=== PATIENT | female | born 1935 | race Caucasian/White ===

== ENCOUNTER 2017-02-24 12:01 | Inpatient (IN) | payer OTHER ==
[2017-02-24] VITALS (8 sets, daily range): BP systolic 139–184; BP diastolic 60–91
[~2017-02-24] VITALS: Ht 162.6 cm; Wt 62.3 kg
--- NOTE | 2017-02-24 12:20 | ED.ADGEN ---
Adult General Chief Complaint Chief Complaint: MECHANICAL FALL HPI HPI Patient is a 82 year old female with witnessed mechanical fall in the kitchen out while at home. Patient reportedly hit her head. She denies headache, neck pain, extremity pain or weakness. Patient does not report any pain complaint. Denies any symptoms prior to fall. EMS was called to assist the patient, initially the patient was alert and oriented times person and place. Currently the patient became more forgetful with regard to the event could not recall her name. Patient was transferred to the ED for evaluation of fall and altered mental status. The patient's baseline mental status is unknown. Patient isn't on daily Plavix but does not take any other anticoagulation or antiplatelet therapy. History is limited by the patient's cognitive impairment. Review of Systems Review of Systems ROS as per HPI. Current Medications Current Medications Current Medications Medications (Trade) Dose Ordered Sig/Marco Start Time Stop Time Status Last Admin Dose Admin Ondansetron HCl (Zofran) 4 mg STK-MED ONCE 02/24/17 14:18 02/24/17 14:19 DC Allergies Allergies Allergies Coded Allergies Type Severity Reaction Last Updated Verified No Known Drug Allergies 02/24/17 No Physical Exam Physical Exam Constitutional: Well developed, well nourished, no acute distress, non-toxic appearance. HENT: Normocephalic, atraumatic, bilateral external ears normal, oropharynx moist, no oral exudates, nose normal. Eyes: PERRLA, EOM. Neck: Normal range of motion, no tenderness. Cardiovascular:Heart rate regular rhythm, no murmur. Lungs & Thorax: Bilateral breath sounds clear to auscultation. Abdomen: Bowel sounds normal, soft, no tenderness. Skin: Warm, dry. Back: No tenderness. Extremities: No tenderness. Neurologic: Alert and oriented X 1, normal motor function, normal sensory function, no focal deficits noted. Psychologic: Affect normal, judgement normal, mood normal. Current Patient Data Vital Signs Vital Signs Date Time Temp Pulse Resp B/P (MAP) Pulse Ox O2 Delivery O2 Flow Rate FiO2 02/24/17 13:46 78 20 173/90 (117) 97 02/24/17 12:01 97.6 97.6 Lab Values Laboratory Tests Test 02/24/17 12:10 White Blood Count 11.0 x10^3/uL (4.0-11.0) Red Blood Count 4.42 x10^6/uL (3.50-5.40) Hemoglobin 13.0 g/dL (12.0-15.5) Hematocrit 39.6 % (36.0-47.0) Mean Corpuscular Volume 90 fL (79-100) Mean Corpuscular Hemoglobin 29 pg (25-35) Mean Corpuscular Hemoglobin Concent 33 g/dL (31-37) Red Cell Distribution Width 12.8 % (11.5-14.5) Platelet Count 344 x10^3/uL (140-400) Neutrophils (%) (Auto) 88 % (31-73) H Lymphocytes (%) (Auto) 6 % (24-48) L Monocytes (%) (Auto) 5 % (0-9) Eosinophils (%) (Auto) 0 % (0-3) Basophils (%) (Auto) 0 % (0-3) Neutrophils # (Auto) 9.7 x10^3uL (1.8-7.7) H Lymphocytes # (Auto) 0.7 x10^3/uL (1.0-4.8) L Monocytes # (Auto) 0.6 x10^3/uL (0.0-1.1) Eosinophils # (Auto) 0.0 x10^3/uL (0.0-0.7) Basophils # (Auto) 0.0 x10^3/uL (0.0-0.2) Platelet Estimate Pending Sodium Level 137 mmol/L (136-145) Potassium Level 4.0 mmol/L (3.5-5.1) Chloride Level 100 mmol/L (98-107) Carbon Dioxide Level 28 mmol/L (21-32) Anion Gap 9 (6-14) Blood Urea Nitrogen 21 mg/dL (7-20) H Creatinine 1.1 mg/dL (0.6-1.0) H Estimated GFR (Cockcroft-Gault) 47.6 BUN/Creatinine Ratio 19 (6-20) Glucose Level 114 mg/dL (70-99) H Calcium Level 9.9 mg/dL (8.5-10.1) Total Bilirubin 0.6 mg/dL (0.2-1.0) Aspartate Amino Transferase (AST) 19 U/L (15-37) Alanine Aminotransferase (ALT) 17 U/L (14-59) Alkaline Phosphatase 74 U/L (46-116) Total Protein 8.4 g/dL (6.4-8.2) H Albumin 4.1 g/dL (3.4-5.0) Albumin/Globulin Ratio 1.0 (1.0-1.7) Laboratory Tests 02/24/17 12:10 Laboratory Tests 02/24/17 12:10 EKG EKG [EKG normal sinus rhythm, rate 66, nonspecific QRSt abnormality anterior leads, QTC 427.] Radiology/Procedures Radiology/Procedures [CT head: Small amount of scattered subarachnoid hemorrhage bilaterally, chronic left basal ganglia/pronator infarct. Atrophy related to small vessel ischemic changes, per radiology report. ] Course & Med Decision Making Course & Med Decision Making Pertinent Labs and Imaging studies reviewed. (See chart for details) [Witnessed mechanical fall, patient with subsequent memory loss, and nausea after arriving in the emergency department. GCS 14. CT head shows possible traumatic subarachnoid hemorrhage. Patient does not have any focal neurologic deficits. CT imaging cervical spine ordered and pending. Dr. Carreon on-call for general surgery agrees to consult. Recommendations for the patient be admitted to the ICU for monitoring and repeat CT imaging in the morning. Dr. TOVAR on-call for the hospitalist service to admit.] Dragon Disclaimer Dragon Disclaimer This electronic medical record was generated, in whole or in part, using a voice recognition dictation system. RAMIRO GONZALEZ DO Feb 24, 2017 12:20
[2017-02-24] MEDS ORDERED: NAPR500T8 PO (12:22)
[2017-02-24] MEDS ORDERED: FAMO20TA5 PO (12:22)
[2017-02-24] MEDS ORDERED: SUCR1TAB PO (12:22)
[2017-02-24] MEDS ORDERED: LISI-334 PO (12:23)
[2017-02-24] MEDS ORDERED: CLOP75TA PO (12:23)
[2017-02-24] MEDS ORDERED: HYDR12.58 PO (12:24)
[2017-02-24] MEDS ORDERED: LORA0.5T PO (12:24)
[2017-02-24] MEDS ORDERED: CLON0.2T PO (12:25)
[2017-02-24] MEDS ORDERED: CALC500T54 PO (12:25)
[2017-02-24] MEDS ORDERED: MULT-658 PO (12:26)
[2017-02-24 12:27] LABS: BASO % 0 % (0-3); EOS % 0 % (0-3); HEMATOCRIT 39.6 % (36.0-47.0); LYMPH # 0.7 x10^3/uL (1.0-4.8); LYMPH % 6 % (24-48); MEAN CORPUSCULAR HEMOGLOBIN 29 pg (25-35); MEAN CORPUSCULAR HGB CONC 33 g/dL (31-37); MEAN CORPUSCULAR VOLUME 90 fL (79-100); MONO % 5 % (0-9); NEUT % 88 % (31-73); PLATELET COUNT 344 x10^3/uL (140-400); RED BLOOD COUNT 4.42 x10^6/uL (3.50-5.40); RED CELL DISTRIBUTION WIDTH 12.8 % (11.5-14.5)
[2017-02-24 12:28] LABS: CALCIUM 9.9 mg/dL (8.5-10.1); CREATININE 1.1 mg/dL (0.6-1.0); GFR 47.6
[2017-02-24 12:34] LABS: ALBUMIN 4.1 g/dL (3.4-5.0); TOTAL BILIRUBIN 0.6 mg/dL (0.2-1.0); TOTAL PROTEIN 8.4 g/dL (6.4-8.2)
--- NOTE | 2017-02-24 13:01 | EKG ---
[facility] [address] [place] [address] Test Date: 2017-02-24 Test Time: 12:18:45 Pat Name: ANSON ANDINO Department: Room: Gender: F [employer]: : 1935 Requested By: RAMIRO GONZALEZ Order Number: [id number] Reading MD: Kenneth Rivas Measurements Intervals [place] Rate: 66 P: 43 ND: 154 QRS: 23 QRSD: 92 T: 54 QT: 406 QTc: 427 Interpretive Statements SINUS RHYTHM Electronically Signed On 02-24-2017 16:58:18 CDT by Kenneth Rivas
--- NOTE | 2017-02-24 14:03 | RAD ---
EXAM: CT head without contrast. HISTORY: Fall with head injury. Anticoagulated. TECHNIQUE: Computed tomography of the head was performed without intravenous contrast. COMPARISON: 08/19/2016. FINDINGS: There is a small amount of subarachnoid hemorrhage in the right temporal, left frontal, and left parietal territories. There is a chronic infarct in the left putamen extending superiorly into the arroyo radiata. There is mild chronic small vessel ischemic white matter change elsewhere. Prominence of the lateral ventricles and hemispheric sulci indicate mild atrophy. The visualized paranasal sinuses appear clear. The orbits are unremarkable. The temporal bones are unremarkable. The calvarium reveals no suspicious lesions. IMPRESSION: 1. Small amount of scattered subarachnoid hemorrhage bilaterally. 2. Chronic left basal ganglia/arroyo radiata infarct. 3. Mild atrophy and chronic small vessel ischemic white matter change. These findings were called to Dr. Porter by Eric Willard on 02/24/2017 at 1350. *One or more of the following individualized dose reduction techniques were utilized for this examination: 1. Automated exposure control. 2. Adjustment of the mA and/or kV according to patient size. 3. Use of iterative reconstruction technique.
[2017-02-24] MEDS ORDERED: ONDANSETRON PF 4 MG/2 ML VIAL. ONE (14:18)
[2017-02-24] MEDS ORDERED: ONDANSETRON PF 4 MG/2 ML VIAL. IV ONE (14:30)
[2017-02-24 14:32] LABS: PLT ESTIMATE ADEQUATE (ADEQUATE); TOXIC GRANULATION SLIGHT
[2017-02-24] MEDS ORDERED: hydrALAZINE 20 MG/ML VIAL. IVP PRN (15:30)
[2017-02-24] MEDS ORDERED: ACETAMINOPHEN 325 MG TABLET. PO PRN (15:30)
[2017-02-24] MEDS ORDERED: DOCUSATE SODIUM 100 MG CAPSULE. PO PRN (15:30)
[2017-02-24] MEDS ORDERED: traMADol 50 MG TABLET PO PRN (15:30)
[2017-02-24] MEDS ORDERED: MORPHINE SULFATE 2 MG/ML DISP.SYRIN. IV PRN (15:30)
--- NOTE | 2017-02-24 15:30 | ACF ---
Admit Criteria Forms Admit Criteria Forms Admit Criteria Forms MENTAL STATUS CHANGE Clinical Indications for Inpatient Care (Place 'X' for any and all applicable criteria): Ongoing inpatient care may be needed for 1 or more of the following(1)(2)(3)(5)( 6): [X]I. Suspected serious etiology (eg, medical disorder, PARACHUTE RIGGER event) of altered mental status [ ]II. Danger to self or others not manageable at lower level of care [ ]III. Grave disability (eg, inability to perform self care necessary at lower level of care) [ ]IV. Agitation or inappropriate behavior interfering with care for primary condition (eg, attempting to discontinue lines or drains prematurely, unable to cooperate with respiratory care) [ ]V. Delirium [A] [D][E] as described by 1 or more of the following(26): [ ]a) Delirium due to alcohol or sedative [F] withdrawal [ ]b) Delirium of uncertain etiology that has not responded to appropriate empiric treatment [ ]c) Delirium that prevents performance of a life-sustaining function (eg, feeding or hydrating oneself) [ ]. General contraindications and/or Inappropriate clinical situations for Observational Care in patients with Mental Status Change, when ANY ONE of the following is required: [X]a) Prediction of prolongation of LOS based on ANY ONE of the following may be considered as a contraindication for observational care 2, 3, 4, 5, 6, 7, 8, 9, 10, 11 [X]i) Age > 65 yrs. [X]ii) Patient arriving by ambulance [ ]iii) Patient with high acuity [ ]iv) Patient requiring vital sign monitoring [ ]v) Patient on IV medication [ ]b) Systolic blood pressures greater than or equal to 180mmHg 3, 12 [ ]c) Patient with altered mental status including delirium and other alteration of consciousness, (3) [ ]d) Patient whose discharge disposition will be to a group home home or rehabilitation home should not be managed in Emergency Department Observation Unit. CMS rule requires 3 days hospital stay before such placement.3,13 [ ]e) Patient with failure to thrive due to broad array of etiologies 3,16,17 [ ]f) Inability to ambulate 3,14 Extended stay beyond goal length of stay for the primary condition may be needed until ALL of the following are present(3)(5): [ ]a) Underlying medical etiology of mental status change is absent, or has been established and adequately treated [ ]b) Danger to self or others is absent or manageable at lower level of care. [ ]c) Behavior crisis management, including physical or chemical restraints, is not required or available at lower level of car [ ]d) Substance or alcohol withdrawal is absent or manageable at lower level of care. [ ]e) Behavioral symptoms (eg, agitation, somnolence, inappropriate behavior) are absent, or are manageable at lower level of care. The original [facility] [employer] content created by [facility] has been revised. The portions of the content which have been revised are identified through the use of italic text or in bold, and [facility] has neither reviewed nor approved the modified material. All other unmodified content is copyright [facility]. Please see references footnoted in the original [facility] [employer] edition 2016 SHANNEN CORTES Feb 24, 2017 15:30
--- NOTE | 2017-02-24 15:31 | PDOC1 ---
History and Physical Date of Admission Date of Admission 02/24/17 Identification/Chief Complaint Chief Complaint fall Problems: Source Source: Caregiver, Chart review, Patient History of Present Illness History of Present Illness Patient is a 82 year old female with witnessed mechanical fall in the kitchen out while at home. pt is very demented to me, said she didnot remember fall at all. Her at bedside contributes to the history. He said he heard the sound and found she was on the floor of kitchen, not responsive for a few minutes, could not get her up, then helped her to sit in a chair. EMS was called 1hour later, and said the patient was alert and oriented times person and place. Now, pt knows in the hospital, but not which one, cannot tell me the year, as per family, she was sharp before, but from the slow response, pt likely has dementia. however, as per ERP, pt said she hit her head. Pt now denies headache, N/V, neurologic deficit. not sure if syncoped first, pt has unsteady gait problem. as per son, pt fell in the pcp office a few weeks ago, denies hit head. had h/o left side stroke with mild right side weakness, using a walker to walk. CT here showed small SAH. Past Medical History Past Medical History stroke Cardiovascular: HTN Past Surgical History Past Surgical History: No pertinent history Family History Family History: No Significant, Hypertension Social History Smoke: No ALCOHOL: none Drugs: None Current Medications Current Medications Current Medications Medications (Trade) Dose Ordered Sig/Marco Start Time Stop Time Status Last Admin Dose Admin Ondansetron HCl (Zofran) 4 mg STK-MED ONCE 02/24/17 14:18 02/24/17 14:19 DC Allergies Allergies Allergies Coded Allergies Type Severity Reaction Last Updated Verified No Known Drug Allergies 02/24/17 No ROS Review of System CONSTITUTIONAL: No fever or chills EYES: No recent changes SKIN: No rash or itching CARDIOVASCULAR: No chest pain, syncope, palpitations, or edema RESPIRATORY: No SOB or cough GASTROINTESTINAL: No nausea, vomiting or abdominal pain NEUROLOGICAL: No headaches or weakness ENDOCRINE: No cold or heat intolerance GENITOURINARY: No urgency or frequency of urination MUSCULOSKELETAL: No back pain or joint pain LYMPHATICS: No enlarged lymph nodes PSYCHIATRIC: No anxiety or depression Physical Exam Physical Exam GEN.: No apparent distress. Alert and orientedx1, to person, knows hospital , but didnot know which one, cannot tell the year HEENT: Head is normocephalic, atraumatic NECK: Supple. LUNGS: Clear to auscultation. HEART: RRR, S1, S2 present. Peripheral pulses intact ABDOMEN: Soft, nontender. Positive bowel sounds. EXTREMITIES: Without any cyanosis. right side strength 4/5, left side 5/5 NEUROLOGIC: Normal speech, normal tone PSYCHIATRIC: Normal affect, normal mood. SKIN: No ulcerations Vitals Vitals Vital Signs Date Time Temp Pulse Resp B/P (MAP) Pulse Ox O2 Delivery O2 Flow Rate FiO2 02/24/17 13:46 78 20 173/90 (117) 97 02/24/17 12:01 97.6 97.6 Labs Labs Laboratory Tests Test 02/24/17 12:10 White Blood Count 11.0 x10^3/uL (4.0-11.0) Red Blood Count 4.42 x10^6/uL (3.50-5.40) Hemoglobin 13.0 g/dL (12.0-15.5) Hematocrit 39.6 % (36.0-47.0) Mean Corpuscular Volume 90 fL (79-100) Mean Corpuscular Hemoglobin 29 pg (25-35) Mean Corpuscular Hemoglobin Concent 33 g/dL (31-37) Red Cell Distribution Width 12.8 % (11.5-14.5) Platelet Count 344 x10^3/uL (140-400) Neutrophils (%) (Auto) 88 % (31-73) Lymphocytes (%) (Auto) 6 % (24-48) Monocytes (%) (Auto) 5 % (0-9) Eosinophils (%) (Auto) 0 % (0-3) Basophils (%) (Auto) 0 % (0-3) Neutrophils # (Auto) 9.7 x10^3uL (1.8-7.7) Lymphocytes # (Auto) 0.7 x10^3/uL (1.0-4.8) Monocytes # (Auto) 0.6 x10^3/uL (0.0-1.1) Eosinophils # (Auto) 0.0 x10^3/uL (0.0-0.7) Basophils # (Auto) 0.0 x10^3/uL (0.0-0.2) Segmented Neutrophils % 91 % (35-66) Band Neutrophils % 2 % (0-9) Lymphocytes % 2 % (24-48) Monocytes % 5 % (0-10) Toxic Granulation Slight Platelet Estimate Adequate (ADEQUATE) Sodium Level 137 mmol/L (136-145) Potassium Level 4.0 mmol/L (3.5-5.1) Chloride Level 100 mmol/L (98-107) Carbon Dioxide Level 28 mmol/L (21-32) Anion Gap 9 (6-14) Blood Urea Nitrogen 21 mg/dL (7-20) Creatinine 1.1 mg/dL (0.6-1.0) Estimated GFR (Cockcroft-Gault) 47.6 BUN/Creatinine Ratio 19 (6-20) Glucose Level 114 mg/dL (70-99) Calcium Level 9.9 mg/dL (8.5-10.1) Total Bilirubin 0.6 mg/dL (0.2-1.0) Aspartate Amino Transf (AST/SGOT) 19 U/L (15-37) Alanine Aminotransferase (ALT/SGPT) 17 U/L (14-59) Alkaline Phosphatase 74 U/L (46-116) Total Protein 8.4 g/dL (6.4-8.2) Albumin 4.1 g/dL (3.4-5.0) Albumin/Globulin Ratio 1.0 (1.0-1.7) Laboratory Tests Test 02/24/17 12:10 White Blood Count 11.0 x10^3/uL (4.0-11.0) Red Blood Count 4.42 x10^6/uL (3.50-5.40) Hemoglobin 13.0 g/dL (12.0-15.5) Hematocrit 39.6 % (36.0-47.0) Mean Corpuscular Volume 90 fL (79-100) Mean Corpuscular Hemoglobin 29 pg (25-35) Mean Corpuscular Hemoglobin Concent 33 g/dL (31-37) Red Cell Distribution Width 12.8 % (11.5-14.5) Platelet Count 344 x10^3/uL (140-400) Neutrophils (%) (Auto) 88 % (31-73) Lymphocytes (%) (Auto) 6 % (24-48) Monocytes (%) (Auto) 5 % (0-9) Eosinophils (%) (Auto) 0 % (0-3) Basophils (%) (Auto) 0 % (0-3) Neutrophils # (Auto) 9.7 x10^3uL (1.8-7.7) Lymphocytes # (Auto) 0.7 x10^3/uL (1.0-4.8) Monocytes # (Auto) 0.6 x10^3/uL (0.0-1.1) Eosinophils # (Auto) 0.0 x10^3/uL (0.0-0.7) Basophils # (Auto) 0.0 x10^3/uL (0.0-0.2) Segmented Neutrophils % 91 % (35-66) Band Neutrophils % 2 % (0-9) Lymphocytes % 2 % (24-48) Monocytes % 5 % (0-10) Toxic Granulation Slight Platelet Estimate Adequate (ADEQUATE) Sodium Level 137 mmol/L (136-145) Potassium Level 4.0 mmol/L (3.5-5.1) Chloride Level 100 mmol/L (98-107) Carbon Dioxide Level 28 mmol/L (21-32) Anion Gap 9 (6-14) Blood Urea Nitrogen 21 mg/dL (7-20) Creatinine 1.1 mg/dL (0.6-1.0) Estimated GFR (Cockcroft-Gault) 47.6 BUN/Creatinine Ratio 19 (6-20) Glucose Level 114 mg/dL (70-99) Calcium Level 9.9 mg/dL (8.5-10.1) Total Bilirubin 0.6 mg/dL (0.2-1.0) Aspartate Amino Transf (AST/SGOT) 19 U/L (15-37) Alanine Aminotransferase (ALT/SGPT) 17 U/L (14-59) Alkaline Phosphatase 74 U/L (46-116) Total Protein 8.4 g/dL (6.4-8.2) Albumin 4.1 g/dL (3.4-5.0) Albumin/Globulin Ratio 1.0 (1.0-1.7) VTE Prophylaxis Ordered VTE Prophylaxis Devices: Yes VTE Pharmacological Prophylaxi: No Assessment/Plan Assessment/Plan 1. mechanical fall 2. small SAH with 1 3. likely moderate dementia as baseline 4. HTN urgency 5. CKD 3 6. h/o stroke with mild right side weakness plan: dr. Burdick consult, likely will repeat CT tmr hold plavix cont home meds PTOT labs tmr ICU ob AMALIA HOUSTON MD Feb 24, 2017 15:31
--- NOTE | 2017-02-24 15:44 | RAD ---
CT scan of the cervical spine without contrast 02/24/2017 Clinical history: Neck pain post fall. Dizziness. Technique: Unenhanced, contiguous, 0.625 mm axial sections were obtained through the cervical spine. 3 mm reconstructed sagittal, axial, and and coronal images were obtained. One or more of the following individualized dose reduction techniques were utilized for this study: 1. Automated exposure control. 2. Adjustment of the mA and/or kV according to patient size. 3. Use of iterative reconstruction technique. Findings: Sagittal and coronal reconstructed images demonstrate very mild lateral curvature of the cervical spine convex to the right. Degenerative changes consisting of disc space narrowing, vertebral endplate sclerosis and mild anterior and posterior vertebral body osteophyte formation is seen throughout the cervical disc spaces. No fracture or subluxation of the cervical vertebra is seen. Degenerative changes are seen involving the uncovertebral and facet joints throughout the cervical disc spaces. Atherosclerotic calcification is seen in the region carotid bifurcations. Patchy area of scarring/atelectasis and/or infiltrate is seen involving the right upper lobe. Impression: No fracture or subluxation of the cervical vertebra is seen.
[2017-02-24] MEDS: ONDANSETRON PF 4 MG/2 ML VIAL. IV PRN (16:11)
[2017-02-24] MEDS: cloNIDine HCL 0.2 MG TABLET PO SCH (21:47)
[2017-02-25] VITALS (25 sets, daily range): BP systolic 70–160; BP diastolic 37–86
[2017-02-25 05:23] LABS: BILIRUBIN,URINE NEGATIVE (NEG); GLUCOSE,URINE NEGATIVE (NEG); NITRITE,URINE NEGATIVE (NEG); PROTEIN,URINE NEGATIVE (NEG-TRACE); UROBILINOGEN,URINE 0.2 mg/dL (0.2 mg/dL)
[2017-02-25 05:26] LABS: BASO # 0.1 x10^3/uL (0.0-0.2); BASO % 1 % (0-3); EOS % 2 % (0-3); HEMATOCRIT 35.7 % (36.0-47.0); HEMOGLOBIN 12.2 g/dL (12.0-15.5); LYMPH # 1.3 x10^3/uL (1.0-4.8); LYMPH % 21 % (24-48); MEAN CORPUSCULAR HEMOGLOBIN 30 pg (25-35); MEAN CORPUSCULAR HGB CONC 34 g/dL (31-37); MEAN CORPUSCULAR VOLUME 87 fL (79-100); MONO % 12 % (0-9); NEUT % 64 % (31-73); PLATELET COUNT 325 x10^3/uL (140-400); RED BLOOD COUNT 4.08 x10^6/uL (3.50-5.40); WHITE BLOOD COUNT 6.1 x10^3/uL (4.0-11.0)
[2017-02-25 05:45] LABS: CREATININE 1.1 mg/dL (0.6-1.0); GFR 47.6
[2017-02-25 05:49] LABS: BACTERIA,URINE FEW /HPF (0-FEW); RBC,URINE 0 /HPF (0-2)
[2017-02-25 05:50] LABS: SQUAMOUS EPITHELIAL CELL,UR FEW /LPF
[2017-02-25] MEDS ORDERED: LISINOPRIL 20 MG TABLET PO SCH (09:00)
[2017-02-25] MEDS: FAMOTIDINE 20 MG TABLET. PO SCH (09:42)
[2017-02-25] MEDS: cloNIDine HCL 0.2 MG TABLET PO SCH (09:42)
--- NOTE | 2017-02-25 09:43 | PDOC ---
PROGRESS NOTES Chief Complaint Chief Complaint 1. mechanical fall 2. small SAH with 1 3. likely moderate dementia as baseline 4. HTN urgency 5. CKD 3 6. h/o stroke with mild right side weakness History of Present Illness History of Present Illness Out having interval CT ehad BUt GCS 15, ok per stafff Famly at bedside Hgb and iNR all good PLAN: Await from CT Await neurosx rounds Possibly t/o ICU pending CT Vitals Vitals Vital Signs Date Time Temp Pulse Resp B/P (MAP) Pulse Ox O2 Delivery O2 Flow Rate FiO2 02/25/17 07:59 Room Air 97.0 02/25/17 07:00 98.3 60 32 91/46 (61) 94 98.3 Physical Exam General: Alert, Oriented X3, Cooperative Heart: Regular rate, Normal S1, Normal S2 Lungs: Clear Abdomen: Normal bowel sounds, Soft Extremities: No clubbing, No cyanosis Skin: No rashes, No breakdown Labs LABS Laboratory Tests Test 02/24/17 12:10 02/25/17 04:00 02/25/17 05:10 White Blood Count 11.0 x10^3/uL (4.0-11.0) 6.1 x10^3/uL (4.0-11.0) Red Blood Count 4.42 x10^6/uL (3.50-5.40) 4.08 x10^6/uL (3.50-5.40) Hemoglobin 13.0 g/dL (12.0-15.5) 12.2 g/dL (12.0-15.5) Hematocrit 39.6 % (36.0-47.0) 35.7 % (36.0-47.0) Mean Corpuscular Volume 90 fL (79-100) 87 fL (79-100) Mean Corpuscular Hemoglobin 29 pg (25-35) 30 pg (25-35) Mean Corpuscular Hemoglobin Concent 33 g/dL (31-37) 34 g/dL (31-37) Red Cell Distribution Width 12.8 % (11.5-14.5) 13.0 % (11.5-14.5) Platelet Count 344 x10^3/uL (140-400) 325 x10^3/uL (140-400) Neutrophils (%) (Auto) 88 % (31-73) 64 % (31-73) Lymphocytes (%) (Auto) 6 % (24-48) 21 % (24-48) Monocytes (%) (Auto) 5 % (0-9) 12 % (0-9) Eosinophils (%) (Auto) 0 % (0-3) 2 % (0-3) Basophils (%) (Auto) 0 % (0-3) 1 % (0-3) Neutrophils # (Auto) 9.7 x10^3uL (1.8-7.7) 3.9 x10^3uL (1.8-7.7) Lymphocytes # (Auto) 0.7 x10^3/uL (1.0-4.8) 1.3 x10^3/uL (1.0-4.8) Monocytes # (Auto) 0.6 x10^3/uL (0.0-1.1) 0.7 x10^3/uL (0.0-1.1) Eosinophils # (Auto) 0.0 x10^3/uL (0.0-0.7) 0.1 x10^3/uL (0.0-0.7) Basophils # (Auto) 0.0 x10^3/uL (0.0-0.2) 0.1 x10^3/uL (0.0-0.2) Segmented Neutrophils % 91 % (35-66) Band Neutrophils % 2 % (0-9) Lymphocytes % 2 % (24-48) Monocytes % 5 % (0-10) Toxic Granulation Slight Platelet Estimate Adequate (ADEQUATE) Sodium Level 137 mmol/L (136-145) 137 mmol/L (136-145) Potassium Level 4.0 mmol/L (3.5-5.1) 4.0 mmol/L (3.5-5.1) Chloride Level 100 mmol/L (98-107) 101 mmol/L (98-107) Carbon Dioxide Level 28 mmol/L (21-32) 29 mmol/L (21-32) Anion Gap 9 (6-14) 7 (6-14) Blood Urea Nitrogen 21 mg/dL (7-20) 15 mg/dL (7-20) Creatinine 1.1 mg/dL (0.6-1.0) 1.1 mg/dL (0.6-1.0) Estimated GFR (Cockcroft-Gault) 47.6 47.6 BUN/Creatinine Ratio 19 (6-20) Glucose Level 114 mg/dL (70-99) 108 mg/dL (70-99) Calcium Level 9.9 mg/dL (8.5-10.1) 9.0 mg/dL (8.5-10.1) Total Bilirubin 0.6 mg/dL (0.2-1.0) Aspartate Amino Transf (AST/SGOT) 19 U/L (15-37) Alanine Aminotransferase (ALT/SGPT) 17 U/L (14-59) Alkaline Phosphatase 74 U/L (46-116) Total Protein 8.4 g/dL (6.4-8.2) Albumin 4.1 g/dL (3.4-5.0) Albumin/Globulin Ratio 1.0 (1.0-1.7) Urine Collection Type Unknown Urine Color Yellow Urine Clarity Clear Urine pH 7.0 Urine Specific [place] 1.010 Urine Protein Negative mg/dL (NEG-TRACE) Urine Glucose (UA) Negative mg/dL (NEG) Urine Ketones (Stick) Negative mg/dL (NEG) Urine Blood Negative (NEG) Urine Nitrite Negative (NEG) Urine Bilirubin Negative (NEG) Urine Urobilinogen Dipstick 0.2 mg/dL (0.2 mg/dL) Urine Leukocyte Esterase Small (NEG) Urine RBC 0 /HPF (0-2) Urine WBC 11-20 /HPF (0-4) Urine Squamous Epithelial Cells Few /LPF Urine Bacteria Few /HPF (0-FEW) Urine Mucus Slight /LPF Review of Systems Review of Systems all 14 pt reviewed, neg Assessment and Plan Assessmemt and Plan Problems Medical Problems: (1) Closed head injury Status: Acute (2) Subarachnoid hemorrhage Status: Acute Problems: Comment Review of Relevant I have reviewed the following items renetta (where applicable) has been applied. Labs Laboratory Tests Test 02/24/17 12:10 02/25/17 04:00 02/25/17 05:10 White Blood Count 11.0 x10^3/uL (4.0-11.0) 6.1 x10^3/uL (4.0-11.0) Red Blood Count 4.42 x10^6/uL (3.50-5.40) 4.08 x10^6/uL (3.50-5.40) Hemoglobin 13.0 g/dL (12.0-15.5) 12.2 g/dL (12.0-15.5) Hematocrit 39.6 % (36.0-47.0) 35.7 % (36.0-47.0) Mean Corpuscular Volume 90 fL (79-100) 87 fL (79-100) Mean Corpuscular Hemoglobin 29 pg (25-35) 30 pg (25-35) Mean Corpuscular Hemoglobin Concent 33 g/dL (31-37) 34 g/dL (31-37) Red Cell Distribution Width 12.8 % (11.5-14.5) 13.0 % (11.5-14.5) Platelet Count 344 x10^3/uL (140-400) 325 x10^3/uL (140-400) Neutrophils (%) (Auto) 88 % (31-73) 64 % (31-73) Lymphocytes (%) (Auto) 6 % (24-48) 21 % (24-48) Monocytes (%) (Auto) 5 % (0-9) 12 % (0-9) Eosinophils (%) (Auto) 0 % (0-3) 2 % (0-3) Basophils (%) (Auto) 0 % (0-3) 1 % (0-3) Neutrophils # (Auto) 9.7 x10^3uL (1.8-7.7) 3.9 x10^3uL (1.8-7.7) Lymphocytes # (Auto) 0.7 x10^3/uL (1.0-4.8) 1.3 x10^3/uL (1.0-4.8) Monocytes # (Auto) 0.6 x10^3/uL (0.0-1.1) 0.7 x10^3/uL (0.0-1.1) Eosinophils # (Auto) 0.0 x10^3/uL (0.0-0.7) 0.1 x10^3/uL (0.0-0.7) Basophils # (Auto) 0.0 x10^3/uL (0.0-0.2) 0.1 x10^3/uL (0.0-0.2) Segmented Neutrophils % 91 % (35-66) Band Neutrophils % 2 % (0-9) Lymphocytes % 2 % (24-48) Monocytes % 5 % (0-10) Toxic Granulation Slight Platelet Estimate Adequate (ADEQUATE) Sodium Level 137 mmol/L (136-145) 137 mmol/L (136-145) Potassium Level 4.0 mmol/L (3.5-5.1) 4.0 mmol/L (3.5-5.1) Chloride Level 100 mmol/L (98-107) 101 mmol/L (98-107) Carbon Dioxide Level 28 mmol/L (21-32) 29 mmol/L (21-32) Anion Gap 9 (6-14) 7 (6-14) Blood Urea Nitrogen 21 mg/dL (7-20) 15 mg/dL (7-20) Creatinine 1.1 mg/dL (0.6-1.0) 1.1 mg/dL (0.6-1.0) Estimated GFR (Cockcroft-Gault) 47.6 47.6 BUN/Creatinine Ratio 19 (6-20) Glucose Level 114 mg/dL (70-99) 108 mg/dL (70-99) Calcium Level 9.9 mg/dL (8.5-10.1) 9.0 mg/dL (8.5-10.1) Total Bilirubin 0.6 mg/dL (0.2-1.0) Aspartate Amino Transf (AST/SGOT) 19 U/L (15-37) Alanine Aminotransferase (ALT/SGPT) 17 U/L (14-59) Alkaline Phosphatase 74 U/L (46-116) Total Protein 8.4 g/dL (6.4-8.2) Albumin 4.1 g/dL (3.4-5.0) Albumin/Globulin Ratio 1.0 (1.0-1.7) Urine Collection Type Unknown Urine Color Yellow Urine Clarity Clear Urine pH 7.0 Urine Specific [place] 1.010 Urine Protein Negative mg/dL (NEG-TRACE) Urine Glucose (UA) Negative mg/dL (NEG) Urine Ketones (Stick) Negative mg/dL (NEG) Urine Blood Negative (NEG) Urine Nitrite Negative (NEG) Urine Bilirubin Negative (NEG) Urine Urobilinogen Dipstick 0.2 mg/dL (0.2 mg/dL) Urine Leukocyte Esterase Small (NEG) Urine RBC 0 /HPF (0-2) Urine WBC 11-20 /HPF (0-4) Urine Squamous Epithelial Cells Few /LPF Urine Bacteria Few /HPF (0-FEW) Urine Mucus Slight /LPF Laboratory Tests Test 02/24/17 12:10 02/25/17 04:00 02/25/17 05:10 White Blood Count 11.0 x10^3/uL (4.0-11.0) 6.1 x10^3/uL (4.0-11.0) Red Blood Count 4.42 x10^6/uL (3.50-5.40) 4.08 x10^6/uL (3.50-5.40) Hemoglobin 13.0 g/dL (12.0-15.5) 12.2 g/dL (12.0-15.5) Hematocrit 39.6 % (36.0-47.0) 35.7 % (36.0-47.0) Mean Corpuscular Volume 90 fL (79-100) 87 fL (79-100) Mean Corpuscular Hemoglobin 29 pg (25-35) 30 pg (25-35) Mean Corpuscular Hemoglobin Concent 33 g/dL (31-37) 34 g/dL (31-37) Red Cell Distribution Width 12.8 % (11.5-14.5) 13.0 % (11.5-14.5) Platelet Count 344 x10^3/uL (140-400) 325 x10^3/uL (140-400) Neutrophils (%) (Auto) 88 % (31-73) 64 % (31-73) Lymphocytes (%) (Auto) 6 % (24-48) 21 % (24-48) Monocytes (%) (Auto) 5 % (0-9) 12 % (0-9) Eosinophils (%) (Auto) 0 % (0-3) 2 % (0-3) Basophils (%) (Auto) 0 % (0-3) 1 % (0-3) Neutrophils # (Auto) 9.7 x10^3uL (1.8-7.7) 3.9 x10^3uL (1.8-7.7) Lymphocytes # (Auto) 0.7 x10^3/uL (1.0-4.8) 1.3 x10^3/uL (1.0-4.8) Monocytes # (Auto) 0.6 x10^3/uL (0.0-1.1) 0.7 x10^3/uL (0.0-1.1) Eosinophils # (Auto) 0.0 x10^3/uL (0.0-0.7) 0.1 x10^3/uL (0.0-0.7) Basophils # (Auto) 0.0 x10^3/uL (0.0-0.2) 0.1 x10^3/uL (0.0-0.2) Segmented Neutrophils % 91 % (35-66) Band Neutrophils % 2 % (0-9) Lymphocytes % 2 % (24-48) Monocytes % 5 % (0-10) Toxic Granulation Slight Platelet Estimate Adequate (ADEQUATE) Sodium Level 137 mmol/L (136-145) 137 mmol/L (136-145) Potassium Level 4.0 mmol/L (3.5-5.1) 4.0 mmol/L (3.5-5.1) Chloride Level 100 mmol/L (98-107) 101 mmol/L (98-107) Carbon Dioxide Level 28 mmol/L (21-32) 29 mmol/L (21-32) Anion Gap 9 (6-14) 7 (6-14) Blood Urea Nitrogen 21 mg/dL (7-20) 15 mg/dL (7-20) Creatinine 1.1 mg/dL (0.6-1.0) 1.1 mg/dL (0.6-1.0) Estimated GFR (Cockcroft-Gault) 47.6 47.6 BUN/Creatinine Ratio 19 (6-20) Glucose Level 114 mg/dL (70-99) 108 mg/dL (70-99) Calcium Level 9.9 mg/dL (8.5-10.1) 9.0 mg/dL (8.5-10.1) Total Bilirubin 0.6 mg/dL (0.2-1.0) Aspartate Amino Transf (AST/SGOT) 19 U/L (15-37) Alanine Aminotransferase (ALT/SGPT) 17 U/L (14-59) Alkaline Phosphatase 74 U/L (46-116) Total Protein 8.4 g/dL (6.4-8.2) Albumin 4.1 g/dL (3.4-5.0) Albumin/Globulin Ratio 1.0 (1.0-1.7) Urine Collection Type Unknown Urine Color Yellow Urine Clarity Clear Urine pH 7.0 Urine Specific [place] 1.010 Urine Protein Negative mg/dL (NEG-TRACE) Urine Glucose (UA) Negative mg/dL (NEG) Urine Ketones (Stick) Negative mg/dL (NEG) Urine Blood Negative (NEG) Urine Nitrite Negative (NEG) Urine Bilirubin Negative (NEG) Urine Urobilinogen Dipstick 0.2 mg/dL (0.2 mg/dL) Urine Leukocyte Esterase Small (NEG) Urine RBC 0 /HPF (0-2) Urine WBC 11-20 /HPF (0-4) Urine Squamous Epithelial Cells Few /LPF Urine Bacteria Few /HPF (0-FEW) Urine Mucus Slight /LPF Medications Current Medications Ondansetron HCl (Zofran) 4 mg 1X ONCE IV Last administered on 02/24/17 14:20 ; Start 02/24/17 at 14:30; Stop 02/24/17 at 14:31; Status DC Ondansetron HCl (Zofran) 4 mg STK-MED ONCE .ROUTE ; Start 02/24/17 at 14:18; Stop 02/24/17 at 14:19; Status DC Clonidine HCl (Catapres) 0.2 mg BID PO Last administered on 02/24/17 21:47; Start 02/24/17 at 21:00 Famotidine (Pepcid) 20 mg DAILY PO ; Start 02/25/17 at 09:00 Lisinopril (Prinivil) 20 mg DAILY PO ; Start 02/25/17 at 09:00 Acetaminophen (Tylenol) 650 mg PRN Q6HRS PRN PO FEVER; Start 02/24/17 at 15:30 Ondansetron HCl (Zofran) 4 mg PRN Q6HRS PRN IV NAUSEA/VOMITING Last administered on 02/24/17 16:11; Start 02/24/17 at 15:30 Morphine Sulfate 2 mg PRN Q2HR PRN IV PAIN; Start 02/24/17 at 15:30 Tramadol HCl (Ultram) 50 mg PRN Q6HRS PRN PO PAIN; Start 02/24/17 at 15:30 Hydralazine HCl (Apresoline) 10 mg PRN Q4HRS PRN IVP ELEVATED BP, SEE COMMENTS ; Start 02/24/17 at 15:30 Docusate Sodium (Colace) 100 mg PRN DAILY PRN PO CONSTIPATION; Start 02/24/17 at 15:30 Active Scripts Active Reported Centrum Silver Tablet (Multivits-Min/Fa/Lycopene/Lut) 1 Each Tablet 1 Each PO Calcium (Calcium Carbonate) 500 Mg Tab.chew 1,000 Mg PO Clonidine Hcl 0.2 Mg Tablet 1 Tab PO Lorazepam 0.5 Mg Tablet 0.5 Mg PO Hydrochlorothiazide Tablet (Hydrochlorothiazide) 12.5 Mg Tablet 25 Mg PO Lisinopril 20 Mg Tablet 20 Mg PO Clopidogrel (Clopidogrel Bisulfate) 75 Mg Tablet 1 Tab PO DAILY Famotidine 20 Mg Tablet 20 Mg PO Naproxen 500 Mg Tablet.dr 500 Mg PO Sucralfate 1 Gm Tablet 1 Gm PO Vitals/I & O Vital Sign - Last 24 Hours 02/24/17 02/24/17 02/24/17 02/24/17 12:01 12:30 13:46 14:14 Temp 97.6 97.6 Pulse 73 78 78 76 Resp 20 20 20 20 B/P (MAP) 208/82 (124) 191/107 (135) 173/90 (117) 195/82 (119) Pulse Ox 93 96 97 97 02/24/17 02/24/17 02/24/17 02/24/17 14:44 16:00 16:15 16:30 Temp 98.2 98.2 Pulse 72 68 68 66 Resp 20 16 16 16 B/P (MAP) 170/72 (104) 184/87 (119) 167/84 (111) Pulse Ox 96 97 97 97 O2 Delivery Room Air Room Air Room Air O2 Flow Rate 97.0 02/24/17 02/24/17 02/24/17 02/24/17 18:13 19:00 20:00 20:00 Temp 98.3 98.3 Pulse 72 76 76 Resp 18 22 18 B/P (MAP) 163/73 (103) 146/70 (95) 165/71 (102) Pulse Ox 97 98 97 O2 Delivery Room Air Room Air Room Air Room Air 02/24/17 02/24/17 02/24/17 02/24/17 21:00 21:47 22:00 23:00 Pulse 74 71 76 68 Resp 20 22 16 B/P (MAP) 150/91 (110) 139/73 139/73 (95) 161/60 (93) Pulse Ox 95 95 95 O2 Delivery Room Air Room Air Room Air 02/25/17 02/25/17 02/25/17 02/25/17 00:00 00:00 01:00 02:00 Temp 98.7 98.7 Pulse 71 60 60 Resp 16 20 15 B/P (MAP) 90/43 (59) 91/48 (62) 97/46 (63) Pulse Ox 95 96 96 O2 Delivery Room Air Room Air Room Air Room Air 02/25/17 02/25/17 02/25/17 02/25/17 03:00 04:00 04:00 05:00 Temp 98.7 98.7 Pulse 57 62 60 Resp 22 18 18 B/P (MAP) 85/48 (60) 114/60 (78) 108/57 (74) Pulse Ox 94 95 93 O2 Delivery Room Air Room Air Room Air Room Air 02/25/17 02/25/17 02/25/17 06:00 07:00 07:59 Temp 98.3 98.3 Pulse 60 60 Resp 24 32 B/P (MAP) 120/70 (87) 91/46 (61) Pulse Ox 94 94 O2 Delivery Room Air Room Air Room Air O2 Flow Rate 97.0 Intake and Output 02/24/17 02/24/17 02/25/17 15:00 23:00 07:00 Intake Total 100 ml 180 ml Output Total 750 ml Balance 100 ml -570 ml MARY CERVANTES MD Feb 25, 2017 09:43
--- NOTE | 2017-02-25 10:19 | RAD ---
CT scan of the head without contrast 02/25/2017 Clinical History: Follow-up subarachnoid hemorrhage.. Technique: Unenhanced, contiguous, 5 mm axial sections were obtained through the head. One or more of the following individualized dose reduction techniques were utilized for this study: 1. Automated exposure control. 2. Adjustment of the mA and/or kV according to patient size. 3. Use of iterative reconstruction technique. Findings: Comparison study is dated 02/24/2017. There is generalized parenchymal atrophy. Small scattered areas of decreased attenuation are seen within the periventricular and subcortical white matter of both cerebral hemispheres consistent with areas of small vessel ischemic disease. An old area of lacunar infarction is seen extending superiorly from the left lenticular nucleus. This measures 2.2 cm in greatest diameter. It is unchanged. Small areas of acute subarachnoid hemorrhage are seen within sulci scattered throughout both cerebral hemispheres. This has decreased since the previous examination slightly. No new area of hemorrhage is seen. No skull fracture is seen. Impression: Slight interval decrease in the amount of subarachnoid hemorrhage.
[2017-02-25] MEDS ORDERED: CLON0.2T PO (11:39)
[2017-02-25] MEDS ORDERED: IV NORMAL SALINE 500ML BAG 500 ML IV ONE ×2 (11:45→15:30)
--- NOTE | 2017-02-25 12:58 | PDOC3 ---
Discharge Summary Visit Information Date of Admission: Feb 24, 2017 Date of Discharge: Feb 25, 2017 Admitting Diagnosis Comment: 1. mechanical fall 2. small SAH with 1 small 3. likely moderate dementia as baseline 4. HTN urgency 5. CKD 3 6. h/o stroke with mild right side weakness Final Diagnosis Problems Medical Problems: (1) Closed head injury Status: Acute (2) Subarachnoid hemorrhage Status: Acute Brief Hospital Course Allergies Allergies Coded Allergies Type Severity Reaction Last Updated Verified No Known Drug Allergies 02/24/17 No Vital Signs Vital Signs Date Time Temp Pulse Resp B/P (MAP) Pulse Ox O2 Delivery O2 Flow Rate FiO2 02/25/17 12:13 56 32 91/48 (62) 95 Room Air 02/25/17 12:11 97.0 02/25/17 07:00 98.3 98.3 Lab Results Laboratory Tests Test 02/24/17 12:10 02/25/17 04:00 02/25/17 05:10 White Blood Count 11.0 x10^3/uL (4.0-11.0) 6.1 x10^3/uL (4.0-11.0) Red Blood Count 4.42 x10^6/uL (3.50-5.40) 4.08 x10^6/uL (3.50-5.40) Hemoglobin 13.0 g/dL (12.0-15.5) 12.2 g/dL (12.0-15.5) Hematocrit 39.6 % (36.0-47.0) 35.7 % (36.0-47.0) Mean Corpuscular Volume 90 fL (79-100) 87 fL (79-100) Mean Corpuscular Hemoglobin 29 pg (25-35) 30 pg (25-35) Mean Corpuscular Hemoglobin Concent 33 g/dL (31-37) 34 g/dL (31-37) Red Cell Distribution Width 12.8 % (11.5-14.5) 13.0 % (11.5-14.5) Platelet Count 344 x10^3/uL (140-400) 325 x10^3/uL (140-400) Neutrophils (%) (Auto) 88 % (31-73) 64 % (31-73) Lymphocytes (%) (Auto) 6 % (24-48) 21 % (24-48) Monocytes (%) (Auto) 5 % (0-9) 12 % (0-9) Eosinophils (%) (Auto) 0 % (0-3) 2 % (0-3) Basophils (%) (Auto) 0 % (0-3) 1 % (0-3) Neutrophils # (Auto) 9.7 x10^3uL (1.8-7.7) 3.9 x10^3uL (1.8-7.7) Lymphocytes # (Auto) 0.7 x10^3/uL (1.0-4.8) 1.3 x10^3/uL (1.0-4.8) Monocytes # (Auto) 0.6 x10^3/uL (0.0-1.1) 0.7 x10^3/uL (0.0-1.1) Eosinophils # (Auto) 0.0 x10^3/uL (0.0-0.7) 0.1 x10^3/uL (0.0-0.7) Basophils # (Auto) 0.0 x10^3/uL (0.0-0.2) 0.1 x10^3/uL (0.0-0.2) Segmented Neutrophils % 91 % (35-66) Band Neutrophils % 2 % (0-9) Lymphocytes % 2 % (24-48) Monocytes % 5 % (0-10) Toxic Granulation Slight Platelet Estimate Adequate (ADEQUATE) Sodium Level 137 mmol/L (136-145) 137 mmol/L (136-145) Potassium Level 4.0 mmol/L (3.5-5.1) 4.0 mmol/L (3.5-5.1) Chloride Level 100 mmol/L (98-107) 101 mmol/L (98-107) Carbon Dioxide Level 28 mmol/L (21-32) 29 mmol/L (21-32) Anion Gap 9 (6-14) 7 (6-14) Blood Urea Nitrogen 21 mg/dL (7-20) 15 mg/dL (7-20) Creatinine 1.1 mg/dL (0.6-1.0) 1.1 mg/dL (0.6-1.0) Estimated GFR (Cockcroft-Gault) 47.6 47.6 BUN/Creatinine Ratio 19 (6-20) Glucose Level 114 mg/dL (70-99) 108 mg/dL (70-99) Calcium Level 9.9 mg/dL (8.5-10.1) 9.0 mg/dL (8.5-10.1) Total Bilirubin 0.6 mg/dL (0.2-1.0) Aspartate Amino Transf (AST/SGOT) 19 U/L (15-37) Alanine Aminotransferase (ALT/SGPT) 17 U/L (14-59) Alkaline Phosphatase 74 U/L (46-116) Total Protein 8.4 g/dL (6.4-8.2) Albumin 4.1 g/dL (3.4-5.0) Albumin/Globulin Ratio 1.0 (1.0-1.7) Urine Collection Type Unknown Urine Color Yellow Urine Clarity Clear Urine pH 7.0 Urine Specific [place] 1.010 Urine Protein Negative mg/dL (NEG-TRACE) Urine Glucose (UA) Negative mg/dL (NEG) Urine Ketones (Stick) Negative mg/dL (NEG) Urine Blood Negative (NEG) Urine Nitrite Negative (NEG) Urine Bilirubin Negative (NEG) Urine Urobilinogen Dipstick 0.2 mg/dL (0.2 mg/dL) Urine Leukocyte Esterase Small (NEG) Urine RBC 0 /HPF (0-2) Urine WBC 11-20 /HPF (0-4) Urine Squamous Epithelial Cells Few /LPF Urine Bacteria Few /HPF (0-FEW) Urine Mucus Slight /LPF Laboratory Tests Test 02/25/17 04:00 02/25/17 05:10 Urine Collection Type Unknown Urine Color Yellow Urine Clarity Clear Urine pH 7.0 Urine Specific [place] 1.010 Urine Protein Negative mg/dL (NEG-TRACE) Urine Glucose (UA) Negative mg/dL (NEG) Urine Ketones (Stick) Negative mg/dL (NEG) Urine Blood Negative (NEG) Urine Nitrite Negative (NEG) Urine Bilirubin Negative (NEG) Urine Urobilinogen Dipstick 0.2 mg/dL (0.2 mg/dL) Urine Leukocyte Esterase Small (NEG) Urine RBC 0 /HPF (0-2) Urine WBC 11-20 /HPF (0-4) Urine Squamous Epithelial Cells Few /LPF Urine Bacteria Few /HPF (0-FEW) Urine Mucus Slight /LPF White Blood Count 6.1 x10^3/uL (4.0-11.0) Red Blood Count 4.08 x10^6/uL (3.50-5.40) Hemoglobin 12.2 g/dL (12.0-15.5) Hematocrit 35.7 % (36.0-47.0) Mean Corpuscular Volume 87 fL (79-100) Mean Corpuscular Hemoglobin 30 pg (25-35) Mean Corpuscular Hemoglobin Concent 34 g/dL (31-37) Red Cell Distribution Width 13.0 % (11.5-14.5) Platelet Count 325 x10^3/uL (140-400) Neutrophils (%) (Auto) 64 % (31-73) Lymphocytes (%) (Auto) 21 % (24-48) Monocytes (%) (Auto) 12 % (0-9) Eosinophils (%) (Auto) 2 % (0-3) Basophils (%) (Auto) 1 % (0-3) Neutrophils # (Auto) 3.9 x10^3uL (1.8-7.7) Lymphocytes # (Auto) 1.3 x10^3/uL (1.0-4.8) Monocytes # (Auto) 0.7 x10^3/uL (0.0-1.1) Eosinophils # (Auto) 0.1 x10^3/uL (0.0-0.7) Basophils # (Auto) 0.1 x10^3/uL (0.0-0.2) Sodium Level 137 mmol/L (136-145) Potassium Level 4.0 mmol/L (3.5-5.1) Chloride Level 101 mmol/L (98-107) Carbon Dioxide Level 29 mmol/L (21-32) Anion Gap 7 (6-14) Blood Urea Nitrogen 15 mg/dL (7-20) Creatinine 1.1 mg/dL (0.6-1.0) Estimated GFR (Cockcroft-Gault) 47.6 Glucose Level 108 mg/dL (70-99) Calcium Level 9.0 mg/dL (8.5-10.1) Brief Hospital Course Ms. 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 Condition at Discharge: Improved, Stable Disposition/Orders: D/C to Home Scheduled Clonidine Hcl (Clonidine Hcl), 1 TAB PO HS, (Reported) Clopidogrel Bisulfate (Clopidogrel), 1 TAB PO DAILY, (Reported) Miscellaneous Medications Calcium Carbonate (Calcium), 1,000 MG PO, (Reported) Famotidine (Famotidine), 20 MG PO, (Reported) Hydrochlorothiazide (Hydrochlorothiazide Tablet), 25 MG PO, (Reported) Lisinopril (Lisinopril), 20 MG PO, (Reported) Lorazepam (Lorazepam), 0.5 MG PO, (Reported) Multivits-Min/Fa/Lycopene/Lut (Centrum Silver Tablet), 1 EACH PO, (Reported) Naproxen (Naproxen), 500 MG PO, (Reported) Sucralfate (Sucralfate), 1 GM PO, (Reported) Discontinued Medications Clonidine Hcl (Clonidine Hcl), 1 TAB PO, (Reported) MARY CERVANTES MD Feb 25, 2017 12:58
--- NOTE | 2017-02-25 15:29 | PDOC ---
Provider Note Provider Note Patient seen and examined at 1230. traumatic SAH, improved on F/U CT head awake, alert. does not recall fall. Okay to transfer to floor. Will need f/u CT head in 2 weeks. Full consult to follow. PATRICIA CARCAMO MD Feb 25, 2017 15:29
[2017-02-25] MEDS: IV NORMAL SALINE 1000ML BAG 1,000 ML IV SCH (16:54)
[2017-02-26] VITALS (11 sets, daily range): BP systolic 106–179; BP diastolic 45–88
[2017-02-26] MEDS: ONDANSETRON PF 4 MG/2 ML VIAL. IV PRN (02:58)
[2017-02-26] MEDS: IV NORMAL SALINE 1000ML BAG 1,000 ML IV SCH ×2 (05:26→11:30)
[2017-02-26] MEDS ORDERED: LISINOPRIL 20 MG TABLET PO SCH (09:00)
[2017-02-26] MEDS: FAMOTIDINE 20 MG TABLET. PO SCH (09:56)
--- NOTE | 2017-02-26 10:21 | PDOC ---
Provider Note Provider Note DISCHARGE SUMMARY Site Code: [facility] Name: ANSON HLODEN Acct: [id number] MR: [id number] : 1935 Visit Date: 02/24/17 [facility] [address] [place] [address] DISCHARGE SUMMARY PATIENT: ANSON HOLDEN ACCOUNT: [id number] : 1935 LOC: 1 [facility] AGE: 82 SEX: F STATUS: ADM IN LOCATION: 1 [facility] Discharge Summary Visit Information Date of Admission: Feb 24, 2017 Date of Discharge: Feb 26, 2017 Admitting Diagnosis Comment: 1. mechanical fall 2. small SAH with 1 small 3. likely moderate dementia as baseline 4. HTN urgency 5. CKD 3 6. h/o stroke with mild right side weakness Final Diagnosis Problems Medical Problems: (1) Closed head injury Status: Acute (2) Subarachnoid hemorrhage Status: Acute Brief Hospital Course Allergies Allergies Coded Allergies Type Severity Reaction Last Updated Verified No Known Drug Allergies 02/24/17 No Vital Signs Vital Signs Date Time Temp Pulse Resp B/P (MAP) Pulse Ox O2 Delivery O2 Flow Rate FiO2 02/25/17 12:13 56 32 91/48 (62) 95 Room Air 02/25/17 12:11 97.0 02/25/17 07:00 98.3 98.3 Lab Results Laboratory Tests Test 02/24/17 12:10 02/25/17 04:00 02/25/17 05:10 White Blood Count 11.0 x10^3/uL (4.0-11.0) 6.1 x10^3/uL (4.0-11.0) Red Blood Count 4.42 x10^6/uL (3.50-5.40) 4.08 x10^6/uL (3.50-5.40) Hemoglobin 13.0 g/dL (12.0-15.5) 12.2 g/dL (12.0-15.5) Hematocrit 39.6 % (36.0-47.0) 35.7 % (36.0-47.0) Mean Corpuscular Volume 90 fL (79-100) 87 fL (79-100) Mean Corpuscular Hemoglobin 29 pg (25-35) 30 pg (25-35) Mean Corpuscular Hemoglobin Concent 33 g/dL (31-37) 34 g/dL (31-37) Red Cell Distribution Width 12.8 % (11.5-14.5) 13.0 % (11.5-14.5) Platelet Count 344 x10^3/uL (140-400) 325 x10^3/uL (140-400) Neutrophils (%) (Auto) 88 % (31-73) 64 % (31-73) Lymphocytes (%) (Auto) 6 % (24-48) 21 % (24-48) Monocytes (%) (Auto) 5 % (0-9) 12 % (0-9) Eosinophils (%) (Auto) 0 % (0-3) 2 % (0-3) Basophils (%) (Auto) 0 % (0-3) 1 % (0-3) Neutrophils # (Auto) 9.7 x10^3uL (1.8-7.7) 3.9 x10^3uL (1.8-7.7) Lymphocytes # (Auto) 0.7 x10^3/uL (1.0-4.8) 1.3 x10^3/uL (1.0-4.8) Monocytes # (Auto) 0.6 x10^3/uL (0.0-1.1) 0.7 x10^3/uL (0.0-1.1) Eosinophils # (Auto) 0.0 x10^3/uL (0.0-0.7) 0.1 x10^3/uL (0.0-0.7) Basophils # (Auto) 0.0 x10^3/uL (0.0-0.2) 0.1 x10^3/uL (0.0-0.2) Segmented Neutrophils % 91 % (35-66) Band Neutrophils % 2 % (0-9) Lymphocytes % 2 % (24-48) Monocytes % 5 % (0-10) Toxic Granulation Slight Platelet Estimate Adequate (ADEQUATE) Sodium Level 137 mmol/L (136-145) 137 mmol/L (136-145) Potassium Level 4.0 mmol/L (3.5-5.1) 4.0 mmol/L (3.5-5.1) Chloride Level 100 mmol/L (98-107) 101 mmol/L (98-107) Carbon Dioxide Level 28 mmol/L (21-32) 29 mmol/L (21-32) Anion Gap 9 (6-14) 7 (6-14) Blood Urea Nitrogen 21 mg/dL (7-20) 15 mg/dL (7-20) Creatinine 1.1 mg/dL (0.6-1.0) 1.1 mg/dL (0.6-1.0) Estimated GFR (Cockcroft-Gault) 47.6 47.6 BUN/Creatinine Ratio 19 (6-20) Glucose Level 114 mg/dL (70-99) 108 mg/dL (70-99) Calcium Level 9.9 mg/dL (8.5-10.1) 9.0 mg/dL (8.5-10.1) Total Bilirubin 0.6 mg/dL (0.2-1.0) Aspartate Amino Transf (AST/SGOT) 19 U/L (15-37) Alanine Aminotransferase (ALT/SGPT) 17 U/L (14-59) Alkaline Phosphatase 74 U/L (46-116) Total Protein 8.4 g/dL (6.4-8.2) Albumin 4.1 g/dL (3.4-5.0) Albumin/Globulin Ratio 1.0 (1.0-1.7) Urine Collection Type Unknown Urine Color Yellow Urine Clarity Clear Urine pH 7.0 Urine Specific [place] 1.010 Urine Protein Negative mg/dL (NEG-TRACE) Urine Glucose (UA) Negative mg/dL (NEG) Urine Ketones (Stick) Negative mg/dL (NEG) Urine Blood Negative (NEG) Urine Nitrite Negative (NEG) Urine Bilirubin Negative (NEG) Urine Urobilinogen Dipstick 0.2 mg/dL (0.2 mg/dL) Urine Leukocyte Esterase Small (NEG) Urine RBC 0 /HPF (0-2) Urine WBC 11-20 /HPF (0-4) Urine Squamous Epithelial Cells Few /LPF Urine Bacteria Few /HPF (0-FEW) Urine Mucus Slight /LPF Laboratory Tests Test 02/25/17 04:00 02/25/17 05:10 Urine Collection Type Unknown Urine Color Yellow Urine Clarity Clear Urine pH 7.0 Urine Specific [place] 1.010 Urine Protein Negative mg/dL (NEG-TRACE) Urine Glucose (UA) Negative mg/dL (NEG) Urine Ketones (Stick) Negative mg/dL (NEG) Urine Blood Negative (NEG) Urine Nitrite Negative (NEG) Urine Bilirubin Negative (NEG) Urine Urobilinogen Dipstick 0.2 mg/dL (0.2 mg/dL) Urine Leukocyte Esterase Small (NEG) Urine RBC 0 /HPF (0-2) Urine WBC 11-20 /HPF (0-4) Urine Squamous Epithelial Cells Few /LPF Urine Bacteria Few /HPF (0-FEW) Urine Mucus Slight /LPF White Blood Count 6.1 x10^3/uL (4.0-11.0) Red Blood Count 4.08 x10^6/uL (3.50-5.40) Hemoglobin 12.2 g/dL (12.0-15.5) Hematocrit 35.7 % (36.0-47.0) Mean Corpuscular Volume 87 fL (79-100) Mean Corpuscular Hemoglobin 30 pg (25-35) Mean Corpuscular Hemoglobin Concent 34 g/dL (31-37) Red Cell Distribution Width 13.0 % (11.5-14.5) Platelet Count 325 x10^3/uL (140-400) Neutrophils (%) (Auto) 64 % (31-73) Lymphocytes (%) (Auto) 21 % (24-48) Monocytes (%) (Auto) 12 % (0-9) Eosinophils (%) (Auto) 2 % (0-3) Basophils (%) (Auto) 1 % (0-3) Neutrophils # (Auto) 3.9 x10^3uL (1.8-7.7) Lymphocytes # (Auto) 1.3 x10^3/uL (1.0-4.8) Monocytes # (Auto) 0.7 x10^3/uL (0.0-1.1) Eosinophils # (Auto) 0.1 x10^3/uL (0.0-0.7) Basophils # (Auto) 0.1 x10^3/uL (0.0-0.2) Sodium Level 137 mmol/L (136-145) Potassium Level 4.0 mmol/L (3.5-5.1) Chloride Level 101 mmol/L (98-107) Carbon Dioxide Level 29 mmol/L (21-32) Anion Gap 7 (6-14) Blood Urea Nitrogen 15 mg/dL (7-20) Creatinine 1.1 mg/dL (0.6-1.0) Estimated GFR (Cockcroft-Gault) 47.6 Glucose Level 108 mg/dL (70-99) Calcium Level 9.0 mg/dL (8.5-10.1) Brief Hospital Course Ms. Holden is a 82 old female, some dementia, mechanical fall, suffered small SAH, no FNDs, wide awake, monitored in ICU overnight, INterval CT shows no worsening, STable to go home neurosx point of view, some hypotension bec got her BP meds all at he same time this AM< FLuid responsive, better, Neurologically intact ADDENDUM: BUt unfotunately on day of dc, Pt got her 2 BP meds all at the same time in AM ( should be split, 1 in AM and 1 PM), ran hypotensive responded to IVF but needed to stay 1 more addtl night. 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 Condition at Discharge: Improved, Stable Disposition/Orders: D/C to Home Scheduled Clonidine Hcl (Clonidine Hcl), 1 TAB PO HS, (Reported) Clopidogrel Bisulfate (Clopidogrel), 1 TAB PO DAILY, (Reported) Miscellaneous Medications Calcium Carbonate (Calcium), 1,000 MG PO, (Reported) Famotidine (Famotidine), 20 MG PO, (Reported) Hydrochlorothiazide (Hydrochlorothiazide Tablet), 25 MG PO, (Reported) Lisinopril (Lisinopril), 20 MG PO, (Reported) Lorazepam (Lorazepam), 0.5 MG PO, (Reported) Multivits-Min/Fa/Lycopene/Lut (Centrum Silver Tablet), 1 EACH PO, (Reported) Naproxen (Naproxen), 500 MG PO, (Reported) Sucralfate (Sucralfate), 1 GM PO, (Reported) Discontinued Medications Clonidine Hcl (Clonidine Hcl), 1 TAB PO, (Reported) MARY CERVANTES MD Feb 25, 2017 12:58 DICTATED BY: MARY CERVANTES MD 02/26/17 1250 SIGNED BY: MARY CERVANTES MD 02/26/17 [id number] cc: CHRISTIAN MORAN Jr, MD; MARY CERVANTES MD; AMALIA HOUSTON MD ~ MARY CERVANTES MD Feb 26, 2017 10:21
[2017-02-26] MEDS ORDERED: cloNIDine HCL 0.2 MG TABLET PO SCH (21:00)
== END 2017-02-26 12:53 | disposition home or self-care (01) | DRG 87 ==
LOC: ER 12:01 → 1 WEST ICU 15:00
PROVIDERS: ADMIT Internal Medicine; ATTEND Internal Medicine
DX: S06.6X0A Traumatic subarachnoid hemorrhage without loss of consciousness, initial encounter (principal); I12.9 Hypertensive chronic kidney disease with stage 1 through stage 4 chronic kidney disease, or unspecified chronic kidney disease; I16.0 Hypertensive urgency; N18.3 Chronic kidney disease, stage 3 (moderate); R40.2410 Glasgow coma scale score 13-15, unspecified time; F03.90 Unspecified dementia, unspecified severity, without behavioral disturbance, psychotic disturbance, mood disturbance, and anxiety; W19.XXXA Unspecified fall, initial encounter; Y92.000 Kitchen of unspecified non-institutional (private) residence as the place of occurrence of the external cause; Z82.49 Family history of ischemic heart disease and other diseases of the circulatory system; Z86.73 Personal history of transient ischemic attack (TIA), and cerebral infarction without residual deficits
CPT/HCPCS: 36415; 70450; 72125; 80048; 80053; 81001; 85007; 85027; 87641; 93005; 96374; J2405; J7030; J7040; 97535; 99285-25

== ENCOUNTER → 2017-03-12 | Outpatient (CLI) | payer OTHER ==
[2017-02-26 11:00] VITALS: BP 150/75
[~2017-03-12] MED LIST: CALC500T54 PO; CLON0.2T PO; CLOP75TA PO; FAMO20TA5 PO; HYDR12.58 PO; LISI-334 PO; LORA0.5T PO; MULT-658 PO; NAPR500T8 PO; SUCR1TAB PO
--- NOTE | 2017-03-12 12:16 | KCIC ---
PQRS Compliance Statement: One or more of the following individualized dose reduction techniques were utilized for this examination: 1. Automated exposure control 2. Adjustment of the mA and/or kV according to patient size 3. Use of iterative reconstruction technique CT HEAD WITHOUT CONTRAST History: Subdural hematoma follow-up. Patient fell 02/24/2017. Comparison: CT head without contrast February 25, 2017. Technique: Axial images are obtained of the head from the skull base through the vertex without IV contrast. Findings: Previously seen foci of subarachnoid hemorrhage have resolved. No new hemorrhage is identified. No mass-effect, midline shift, extra-axial fluid collection, or obvious acute infarction is identified. Basilar cisterns are patent. Old left basal ganglia and arroyo radiata infarct. The ventricles and sulci are prominent, consistent with age-related cerebral atrophy. Bone windows demonstrate no acute calvarial abnormality. The visualized paranasal sinuses are clear. Mastoid air cells are well aerated. IMPRESSION: 1. No acute intracranial abnormality. 2. Previously seen foci of subarachnoid hemorrhage have resolved. 3. Stable old left basal ganglia and arroyo radiata infarct. Electronically signed by: Reji Aparicio MD (03/12/2017 12:13 PM)
== END | disposition home or self-care (01) ==
LOC: KCIC CT 09:53
PROVIDERS: ATTEND Neurological Surgery
DX: I62.00 Nontraumatic subdural hemorrhage, unspecified (principal)
CPT/HCPCS: 70450

== ENCOUNTER → 2017-08-03 | Outpatient (CLI) | payer OTHER ==
[2017-02-26 11:00] VITALS: BP 150/75
--- NOTE | 2017-08-03 10:39 | RAD ---
Indication: Abnormal chest x-ray. Axial imaging through the chest was performed without intravenous contrast. Correlation is made with prior CT chest from 06/26/2017. No axillary lymphadenopathy is detected. No definite hilar or mediastinal lymphadenopathy is detected. There are coronary arterial calcifications. No pericardial or pleural fluid is identified. The interstitial nodular infiltrate in the anterior portion of the right upper lobe is similar to prior exam. More consolidative infiltrate superior segment right lower lobe persists and also appears very similar to the prior exam. No new parenchymal infiltrate is identified. The left lung is clear. Upper abdomen is stable. Impression: Persistent abnormal opacities in the right upper lobe and right lower lobe, similar to in appearance to the examination from one month earlier. These remain most compatible with an infectious/inflammatory process however continued close interval follow-up to confirm resolution is recommended. PQRS Compliance Statement: One or more of the following individualized dose reduction techniques were utilized for this examination: 1. Automated exposure control 2. Adjustment of the mA and/or kV according to patient size 3. Use of iterative reconstruction technique
== END | disposition home or self-care (01) ==
LOC: CT 09:29
PROVIDERS: ATTEND Family Medicine
DX: R91.8 Other nonspecific abnormal finding of lung field (principal)
CPT/HCPCS: 71250

== ENCOUNTER 2018-05-22 14:50 | Emergency (ER) | payer OTHER ==
[~2018-05-22] VITALS: Ht 162.6 cm; Wt 62.1 kg
--- NOTE | 2018-05-22 15:22 | PHYS DOC ---
Past Medical History Past Medical History: Anxiety, CVA, GERD, Hypertension, IBS Past Surgical History: Hysterectomy Alcohol Use: None Drug Use: None Adult General Chief Complaint Chief Complaint: SYNCOPE HPI HPI Patient is a 83 year old female who was taken here by EMS for evaluation after she passed out in the restroom. Patient says she had IBS, she went to the restroom to have diarrhea. She became weak, she passed out while sitting on the toilet. She denies any injury. Patient denies any chest pain, no trouble breathing, no headache, no nausea vomiting. She denies any fever, no cough. Patient said she has passed out like this episode multiple times in the past and she was evaluated for, no known cause was found. Review of Systems Review of Systems Constitutional: Denies fever or chills [] Positive for weakness Eyes: Denies change in visual acuity, redness, or eye pain [] HENT: Denies nasal congestion or sore throat [] Respiratory: Denies cough or shortness of breath [] Cardiovascular: No additional information not addressed in HPI [] GI: Denies abdominal pain, nausea, vomiting, bloody stools or diarrhea [] : Denies dysuria or hematuria [] Musculoskeletal: Denies back pain or joint pain [] Integument: Denies rash or skin lesions [] Neurologic: Denies headache, focal weakness or sensory changes [] Endocrine: Denies polyuria or polydipsia [] All other systems were reviewed and found to be within normal limits, except as documented in this note. Allergies Allergies Allergies Coded Allergies Type Severity Reaction Last Updated Verified No Known Drug Allergies 02/24/17 No Physical Exam Physical Exam Constitutional: Well developed, well nourished, no acute distress, non-toxic appearance. [] HENT: Normocephalic, atraumatic, bilateral external ears normal, oropharynx moist, no oral exudates, nose normal. [] Eyes: PERRLA, EOMI, conjunctiva normal, no discharge. [] Neck: Normal range of motion, no tenderness, supple, no stridor. [] Cardiovascular:Heart rate regular rhythm, no murmur [] Lungs & Thorax: Bilateral breath sounds clear to auscultation [] Abdomen: Bowel sounds normal, soft, no tenderness, no masses, no pulsatile masses. [] Skin: Warm, dry, no erythema, no rash. [] Back: No tenderness, no CVA tenderness. [] Extremities: No tenderness, no cyanosis, no clubbing, ROM intact, no edema. [] Neurologic: Alert and oriented X 3, normal motor function, normal sensory function, no focal deficits noted. [] Psychologic: Affect normal, judgement normal, mood normal. [] Current Patient Data Vital Signs Vital Signs Date Time Temp Pulse Resp B/P (MAP) Pulse Ox O2 Delivery O2 Flow Rate FiO2 05/22/18 18:30 80 20 172/89 (116) 97 05/22/18 14:50 98.2 Room Air 98.2 Lab Values Laboratory Tests Test 05/22/18 16:18 05/22/18 16:38 White Blood Count 12.5 x10^3/uL (4.0-11.0) H Red Blood Count 4.57 x10^6/uL (3.50-5.40) Hemoglobin 13.9 g/dL (12.0-15.5) Hematocrit 40.9 % (36.0-47.0) Mean Corpuscular Volume 89 fL (79-100) Mean Corpuscular Hemoglobin 30 pg (25-35) Mean Corpuscular Hemoglobin Concent 34 g/dL (31-37) Red Cell Distribution Width 13.4 % (11.5-14.5) Platelet Count 346 x10^3/uL (140-400) Neutrophils (%) (Auto) 88 % (31-73) H Lymphocytes (%) (Auto) 5 % (24-48) L Monocytes (%) (Auto) 6 % (0-9) Eosinophils (%) (Auto) 0 % (0-3) Basophils (%) (Auto) 0 % (0-3) Neutrophils # (Auto) 11.0 x10^3uL (1.8-7.7) H Lymphocytes # (Auto) 0.6 x10^3/uL (1.0-4.8) L Monocytes # (Auto) 0.7 x10^3/uL (0.0-1.1) Eosinophils # (Auto) 0.0 x10^3/uL (0.0-0.7) Basophils # (Auto) 0.1 x10^3/uL (0.0-0.2) Segmented Neutrophils % 85 % (35-66) H Band Neutrophils % 5 % (0-9) Lymphocytes % 4 % (24-48) L Monocytes % 5 % (0-10) Eosinophils % 1 % (0-5) Platelet Estimate Adequate (ADEQUATE) Prothrombin Time 13.4 SEC (11.7-14.0) Prothrombin Time INR 1.1 (0.8-1.1) PTT 30 SEC (24-38) Sodium Level 140 mmol/L (136-145) Potassium Level 4.0 mmol/L (3.5-5.1) Chloride Level 104 mmol/L (98-107) Carbon Dioxide Level 26 mmol/L (21-32) Anion Gap 10 (6-14) Blood Urea Nitrogen 23 mg/dL (7-20) H Creatinine 1.1 mg/dL (0.6-1.0) H Estimated GFR (Cockcroft-Gault) 47.4 BUN/Creatinine Ratio 21 (6-20) H Glucose Level 120 mg/dL (70-99) H Calcium Level 9.8 mg/dL (8.5-10.1) Magnesium Level 1.8 mg/dL (1.8-2.4) Total Bilirubin 0.4 mg/dL (0.2-1.0) Aspartate Amino Transferase (AST) 16 U/L (15-37) Alanine Aminotransferase (ALT) 16 U/L (14-59) Alkaline Phosphatase 105 U/L (46-116) Creatine Kinase 63 U/L (26-192) Creatine Kinase MB (Mass) 1.7 ng/mL (0.0-3.6) Creatine Kinase MB Relative Index % (0-4) Troponin I Quantitative < 0.017 ng/mL (0.000-0.055) FB-Avk-V-Type Natriuretic Peptide 320 pg/mL (0-449) Total Protein 7.8 g/dL (6.4-8.2) Albumin 4.0 g/dL (3.4-5.0) Albumin/Globulin Ratio 1.1 (1.0-1.7) Urine Collection Type U cath Urine Color Yellow Urine Clarity Clear Urine pH 5.0 Urine Specific [place] 1.020 Urine Protein 30 mg/dL (NEG-TRACE) Urine Glucose (UA) Negative mg/dL (NEG) Urine Ketones (Stick) Negative mg/dL (NEG) Urine Blood Negative (NEG) Urine Nitrite Negative (NEG) Urine Bilirubin Negative (NEG) Urine Urobilinogen Dipstick 0.2 mg/dL (0.2 mg/dL) Urine Leukocyte Esterase Negative (NEG) Urine RBC Occ /HPF (0-2) Urine WBC 0 /HPF (0-4) Urine Transitional Epithelial Cells Few /LPF Urine Amorphous Sediment Present /HPF Urine Bacteria 0 /HPF (0-FEW) Urine Hyaline Casts Many /HPF Urine Mucus Marked /LPF Laboratory Tests 05/22/18 16:18 Laboratory Tests 05/22/18 16:18 EKG EKG EKG: RATE OF 87 BPM, NO STEMI [] Radiology/Procedures Radiology/Procedures [][facility] [address] [place], [place] [id number] IMAGING REPORT Signed PATIENT: ANSON ANDINO ACCOUNT: [id number] : 1935 LOCATION: ER AGE: 83 SEX: F EXAM STATUS: REG ER ORD. PHYSICIAN: RAJENDRA FIELD DO REASON: SYNCOPE, CONFUSED, FELL IN THE RESTROOM PROCEDURE: CT HEAD AND CERVICAL SPINE WO CT head without intravenous contrast History: Head and neck pain. Fall. Comparison: CT head March 12, 2017. Technique: Axial images are obtained of the head from the skull base through the vertex without IV contrast. Exposure: One or more of the following individualized dose reduction techniques were utilized for this examination: 1. Automated exposure control 2. Adjustment of the mA and/or kV according to patient size 3. Use of iterative reconstruction technique Findings: Again seen is old infarction involving left periventricular white matter extending into the left lentiform nucleus. Patchy, nonspecific white matter low-attenuation is seen. The ventricles are appropriate in size, shape, and location for the patient's age. No obvious intracranial mass, mass-effect, midline shift, hemorrhage or obvious acute infarction is identified. Basilar cisterns are patent. Bone windows demonstrate no acute calvarial abnormality. The visualized paranasal sinuses appear clear. Impression: 1. No acute intracranial process. Please note that CT can be relatively insensitive to acute ischemic infarction for up to 24 hours after symptom onset. 2. Chronic changes. CT cervical spine Comparison: CT cervical spine February 24, 2017. Technique: Noncontrast CT of the cervical spine was performed using helical technique. Axial, sagittal, coronal reconstructions were obtained. Exposure: One or more of the following individualized dose reduction techniques were utilized for this examination: 1. Automated exposure control 2. Adjustment of the mA and/or kV according to patient size 3. Use of iterative reconstruction technique Findings: There is no evidence of acute fracture or acute malalignment involving the cervical spine. No prevertebral soft tissue swelling is identified. Dextroconvex scoliosis of the cervical spine is seen. Multilevel degeneration is present with facet and uncovertebral hypertrophy as well as degenerative disc disease. Irregular ossicle thickening or groundglass opacity is seen in the right anterior apex. There is also an irregular groundglass nodule involving the left upper lobe measuring 8 mm. These abnormalities can be seen on comparison study. Impression: 1. No evidence of acute traumatic injury involving the cervical spine. 2. Degeneration. Electronically signed by: Puneet Martinez MD (05/22/2018 3:38 PM) [facility] [place] DICTATED and SIGNED BY: PUNEET MARTINEZ MD DATE: 05/22/18 1533 Impressions: SYNCOPE Course & Med Decision Making Course & Med Decision Making Pertinent Labs and Imaging studies reviewed. (See chart for details) [] Dragon Disclaimer Dragon Disclaimer This electronic medical record was generated, in whole or in part, using a voice recognition dictation system. Departure Departure Impression: Primary Impression: Syncope Disposition: 01 HOME, SELF-CARE Condition: STABLE Referrals: CHRISTIAN MORAN Jr, MD (PCP) FOLLOW UP WITH PCP NEXT WEEK Patient Instructions: Syncope, [id number] RAJENDRA FIELD DO May 22, 2018 15:21
--- NOTE | 2018-05-22 15:28 | RAD ---
Exam: AP portable chest History: Syncope. Comparison: June 25, 2017. Findings: The heart and mediastinal structures are within normal limits for size. Rounded consolidation involving the right perihilar region is more noticeable on current examination, estimated to measure roughly 3.2 cm. No pleural effusion or pneumothorax is identified. Impression: 1. Nodular consolidation involving the right perihilar region is more noticeable and is thought enlarged on current examination. A malignant process is possible. Recommend referral to reports of CT of the chest performed on June 26, 2017 and August 03, 2017. Electronically signed by: Puneet Snyder MD (05/22/2018 3:24 PM) [facility] [place]
--- NOTE | 2018-05-22 15:41 | RAD ---
CT head without intravenous contrast History: Head and neck pain. Fall. Comparison: CT head March 12, 2017. Technique: Axial images are obtained of the head from the skull base through the vertex without IV contrast. Exposure: One or more of the following individualized dose reduction techniques were utilized for this examination: 1. Automated exposure control 2. Adjustment of the mA and/or kV according to patient size 3. Use of iterative reconstruction technique Findings: Again seen is old infarction involving left periventricular white matter extending into the left lentiform nucleus. Patchy, nonspecific white matter low-attenuation is seen. The ventricles are appropriate in size, shape, and location for the patient's age. No obvious intracranial mass, mass-effect, midline shift, hemorrhage or obvious acute infarction is identified. Basilar cisterns are patent. Bone windows demonstrate no acute calvarial abnormality. The visualized paranasal sinuses appear clear. Impression: 1. No acute intracranial process. Please note that CT can be relatively insensitive to acute ischemic infarction for up to 24 hours after symptom onset. 2. Chronic changes. CT cervical spine Comparison: CT cervical spine February 24, 2017. Technique: Noncontrast CT of the cervical spine was performed using helical technique. Axial, sagittal, coronal reconstructions were obtained. Exposure: One or more of the following individualized dose reduction techniques were utilized for this examination: 1. Automated exposure control 2. Adjustment of the mA and/or kV according to patient size 3. Use of iterative reconstruction technique Findings: There is no evidence of acute fracture or acute malalignment involving the cervical spine. No prevertebral soft tissue swelling is identified. Dextroconvex scoliosis of the cervical spine is seen. Multilevel degeneration is present with facet and uncovertebral hypertrophy as well as degenerative disc disease. Irregular ossicle thickening or groundglass opacity is seen in the right anterior apex. There is also an irregular groundglass nodule involving the left upper lobe measuring 8 mm. These abnormalities can be seen on comparison study. Impression: 1. No evidence of acute traumatic injury involving the cervical spine. 2. Degeneration. Electronically signed by: Puneet Snyder MD (05/22/2018 3:38 PM) [facility] [place]
[2018-05-22 16:46] LABS: BILIRUBIN,URINE NEGATIVE (NEG); CLARITY,URINE CLEAR; COLOR,URINE YELLOW; NITRITE,URINE NEGATIVE (NEG); PROTEIN,URINE 30 mg/dL (NEG-TRACE); UROBILINOGEN,URINE 0.2 mg/dL (0.2 mg/dL)
[2018-05-22 16:55] LABS: BASO # 0.1 x10^3/uL (0.0-0.2); BASO % 0 % (0-3); EOS % 0 % (0-3); HEMATOCRIT 40.9 % (36.0-47.0); HEMOGLOBIN 13.9 g/dL (12.0-15.5); LYMPH # 0.6 x10^3/uL (1.0-4.8); LYMPH % 5 % (24-48); MEAN CORPUSCULAR HEMOGLOBIN 30 pg (25-35); MEAN CORPUSCULAR HGB CONC 34 g/dL (31-37); MEAN CORPUSCULAR VOLUME 89 fL (79-100); MONO # 0.7 x10^3/uL (0.0-1.1); MONO % 6 % (0-9); NEUT % 88 % (31-73); PLATELET COUNT 346 x10^3/uL (140-400); RED BLOOD COUNT 4.57 x10^6/uL (3.50-5.40); RED CELL DISTRIBUTION WIDTH 13.4 % (11.5-14.5); WHITE BLOOD COUNT 12.5 x10^3/uL (4.0-11.0)
[2018-05-22 17:01] LABS: CALCIUM 9.8 mg/dL (8.5-10.1); CREATININE 1.1 mg/dL (0.6-1.0); GFR 47.4
[2018-05-22 17:06] LABS: PROTHROMBIN TIME PATIENT 13.4 SEC (11.7-14.0)
[2018-05-22 17:08] LABS: ALBUMIN/GLOBULIN RATIO 1.1 (1.0-1.7); MAGNESIUM 1.8 mg/dL (1.8-2.4); TOTAL BILIRUBIN 0.4 mg/dL (0.2-1.0); TOTAL PROTEIN 7.8 g/dL (6.4-8.2)
[2018-05-22 17:14] LABS: BACTERIA,URINE 0 /HPF (0-FEW); RBC,URINE OCC /HPF (0-2); WBC,URINE 0 /HPF (0-4)
[2018-05-22 17:15] LABS: AMORPHOUS SEDIMENT,UR PRESENT /HPF; HYALINE CASTS, URINE MANY /HPF
[2018-05-22 17:15] LABS: CREATINE KINASE 63 U/L (26-192)
[2018-05-22 17:34] LABS: % BANDS 5 % (0-9); % EOS 1 % (0-5); % LYMPHS 4 % (24-48); % MONOS 5 % (0-10); % SEGS 85 % (35-66); PLT ESTIMATE ADEQUATE (ADEQUATE)
[2018-05-22 18:30] VITALS: BP 172/89
--- NOTE | 2018-05-23 09:50 | EKG ---
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
== END 2018-05-22 19:20 | disposition home or self-care (01) ==
LOC: ER 14:50
DX: R55 Syncope and collapse (principal); R19.7 Diarrhea, unspecified; I10 Essential (primary) hypertension; K21.9 Gastro-esophageal reflux disease without esophagitis; K58.9 Irritable bowel syndrome, unspecified; Z86.73 Personal history of transient ischemic attack (TIA), and cerebral infarction without residual deficits; F41.9 Anxiety disorder, unspecified
CPT/HCPCS: 36415; 51701; 70450; 71045; 72125; 80053; 81001; 82553; 83735; 83880; 84484; 85007; 85025; 85610; 85730; 93005; 99285-25

== ENCOUNTER → 2021-02-28 | Outpatient (CLI) | payer MEDICARE ==
[~2021-02-28] MED LIST changes: -LISI-334 PO; +LISI20TA18 PO
[2021-02-28 11:59] LABS: BASO % 1 % (0-3); EOS # 0.1 x10^3/uL (0.0-0.7); EOS % 1 % (0-3); HEMATOCRIT 35.7 % (36.0-47.0); LYMPH # 0.9 x10^3/uL (1.0-4.8); LYMPH % 11 % (24-48); MEAN CORPUSCULAR HEMOGLOBIN 31 pg (25-35); MEAN CORPUSCULAR HGB CONC 33 g/dL (31-37); MEAN CORPUSCULAR VOLUME 93 fL (79-100); MONO # 0.9 x10^3/uL (0.0-1.1); MONO % 11 % (0-9); NEUT # 6.2 x10^3/uL (1.8-7.7); NEUT % 76 % (31-73); PLATELET COUNT 349 x10^3/uL (140-400); RED BLOOD COUNT 3.85 x10^6/uL (3.50-5.40); RED CELL DISTRIBUTION WIDTH 13.3 % (11.5-14.5); WHITE BLOOD COUNT 8.2 x10^3/uL (4.0-11.0)
[2021-02-28 12:16] LABS: CALCIUM 8.9 mg/dL (8.5-10.1); CREATININE 1.2 mg/dL (0.6-1.0); GFR 42.6
[2021-02-28 12:19] LABS: ALBUMIN/GLOBULIN RATIO 0.7 (1.0-1.7); TOTAL BILIRUBIN 0.6 mg/dL (0.2-1.0); TOTAL PROTEIN 9.5 g/dL (6.4-8.2)
[2021-03-01 12:13] LABS: ALBUM 3.9 g/dL (2.9-4.4); ALPHA 1 0.3 g/dL (0.0-0.4); ALPHA 2 0.9 g/dL (0.4-1.0); BETA 1.1 g/dL (0.7-1.3); GAMMA 2.8 g/dL (0.4-1.8); PROTEIN TOTAL 8.9 g/dL (6.0-8.5); SPEP AG RATIO 0.8 (0.7-1.7)
[2021-03-01 14:12] LABS: COMMENT IMMUNOFIX SERUM Note: (.); IMMUNOGLOBULIN A 158 mg/dL (64-422); IMMUNOGLOBULIN G 3315 mg/dL (586-1602); IMMUNOGLOBULIN M 178 mg/dL (26-217)
[2021-03-01 16:11] LABS: KAPPA FREE 142.5 mg/L (3.3-19.4); KAPPA LAMBDA RATIO 8.33 (0.26-1.65); LAMBDA FREE 17.1 mg/L (5.7-26.3)
== END ==
LOC: ONCLAB 10:53
PROVIDERS: ATTEND Internal Medicine Hematology & Oncology
DX: D47.2 Monoclonal gammopathy (principal)
CPT/HCPCS: 36415; 80053; 82784; 83520; 84165; 85025; 86334

== ENCOUNTER → 2021-06-03 | Outpatient (CLI) | payer MEDICARE ==
[2021-06-03 11:33] LABS: BASO # 0.1 x10^3/uL (0.0-0.2); BASO % 1 % (0-3); EOS # 0.1 x10^3/uL (0.0-0.7); EOS % 1 % (0-3); HEMATOCRIT 32.3 % (36.0-47.0); HEMOGLOBIN 10.7 g/dL (12.0-15.5); LYMPH % 16 % (24-48); MEAN CORPUSCULAR HEMOGLOBIN 31 pg (25-35); MEAN CORPUSCULAR HGB CONC 33 g/dL (31-37); MEAN CORPUSCULAR VOLUME 92 fL (79-100); MONO # 0.6 x10^3/uL (0.0-1.1); MONO % 10 % (0-9); NEUT # 4.5 x10^3/uL (1.8-7.7); NEUT % 72 % (31-73); PLATELET COUNT 397 x10^3/uL (140-400); RED BLOOD COUNT 3.51 x10^6/uL (3.50-5.40); RED CELL DISTRIBUTION WIDTH 14.2 % (11.5-14.5); WHITE BLOOD COUNT 6.3 x10^3/uL (4.0-11.0)
[2021-06-03 11:46] LABS: CALCIUM 8.5 mg/dL (8.5-10.1); GFR 52.6; POTASSIUM 4.3 mmol/L (3.5-5.1)
[2021-06-03 11:52] LABS: ALBUMIN 3.6 g/dL (3.4-5.0); ALBUMIN/GLOBULIN RATIO 0.7 (1.0-1.7); TOTAL BILIRUBIN 0.4 mg/dL (0.2-1.0)
[2021-06-04 13:13] LABS: ALBUM 3.8 g/dL (2.9-4.4); ALPHA 1 0.3 g/dL (0.0-0.4); ALPHA 2 0.9 g/dL (0.4-1.0); BETA 1.1 g/dL (0.7-1.3); COMMENT IMMUNOFIX SERUM Note: (.); GAMMA 2.5 g/dL (0.4-1.8); IMMUNOGLOBULIN A 128 mg/dL (64-422); IMMUNOGLOBULIN G 3047 mg/dL (586-1602); IMMUNOGLOBULIN M 143 mg/dL (26-217); PROTEIN TOTAL 8.5 g/dL (6.0-8.5); SPEP AG RATIO 0.8 (0.7-1.7)
[2021-06-04 14:11] LABS: KAPPA FREE 138.8 mg/L (3.3-19.4); KAPPA LAMBDA RATIO 8.95 (0.26-1.65); LAMBDA FREE 15.5 mg/L (5.7-26.3)
== END ==
LOC: ONCLAB 10:57
PROVIDERS: ATTEND Physician Assistant
DX: C34.11 Malignant neoplasm of upper lobe, right bronchus or lung (principal); D47.2 Monoclonal gammopathy
CPT/HCPCS: 36415; 80053; 82728; 82784; 83520; 83615; 83921; 84165; 85025; 86334

== ENCOUNTER → 2021-08-21 | Outpatient (CLI) | payer MEDICARE ==
[2021-08-21 11:40] LABS: BASO % 1 % (0-3); EOS # 0.1 x10^3/uL (0.0-0.7); EOS % 2 % (0-3); HEMATOCRIT 36.5 % (36.0-47.0); HEMOGLOBIN 11.7 g/dL (12.0-15.5); LYMPH # 0.9 x10^3/uL (1.0-4.8); LYMPH % 12 % (24-48); MEAN CORPUSCULAR HEMOGLOBIN 29 pg (25-35); MEAN CORPUSCULAR HGB CONC 32 g/dL (31-37); MEAN CORPUSCULAR VOLUME 90 fL (79-100); MONO # 0.6 x10^3/uL (0.0-1.1); MONO % 8 % (0-9); NEUT % 78 % (31-73); PLATELET COUNT 355 x10^3/uL (140-400); RED BLOOD COUNT 4.05 x10^6/uL (3.50-5.40); RED CELL DISTRIBUTION WIDTH 14.6 % (11.5-14.5); WHITE BLOOD COUNT 7.7 x10^3/uL (4.0-11.0)
[2021-08-21 11:49] LABS: CALCIUM 8.6 mg/dL (8.5-10.1); CREATININE 1.3 mg/dL (0.6-1.0); GFR 38.8
[2021-08-21 12:12] LABS: ALBUMIN 3.5 g/dL (3.4-5.0); ALBUMIN/GLOBULIN RATIO 0.6 (1.0-1.7); TOTAL BILIRUBIN 0.3 mg/dL (0.2-1.0); TOTAL PROTEIN 9.4 g/dL (6.4-8.2)
[2021-08-22 16:11] LABS: KAPPA FREE 163.4 mg/L (3.3-19.4); KAPPA LAMBDA RATIO 11.27 (0.26-1.65); LAMBDA FREE 14.5 mg/L (5.7-26.3)
[2021-08-23 15:13] LABS: COMMENT IMMUNOFIX SERUM Note: (.); IMMUNOGLOBULIN A 142 mg/dL (64-422); IMMUNOGLOBULIN G 3684 mg/dL (586-1602); IMMUNOGLOBULIN M 167 mg/dL (26-217)
[2021-08-23 17:10] LABS: ALBUM 4.2 g/dL (2.9-4.4); ALPHA 1 0.3 g/dL (0.0-0.4); ALPHA 2 0.9 g/dL (0.4-1.0); PROTEIN TOTAL 9.3 g/dL (6.0-8.5); SPEP AG RATIO 0.8 (0.7-1.7)
== END ==
LOC: ONCLAB 11:03
PROVIDERS: ATTEND Internal Medicine Hematology & Oncology
DX: D47.2 Monoclonal gammopathy (principal); D50.9 Iron deficiency anemia, unspecified
CPT/HCPCS: 36415; 80053; 82728; 82784; 83520; 83540; 83550; 84165; 85025; 86334

== ENCOUNTER → 2021-12-20 | Outpatient (CLI) | payer MEDICARE ==
[2021-12-20 11:33] LABS: CALCIUM 8.8 mg/dL (8.5-10.1); GFR 52.6; POTASSIUM 4.2 mmol/L (3.5-5.1)
[2021-12-20 11:38] LABS: BASO % 1 % (0-3); EOS # 0.1 x10^3/uL (0.0-0.7); EOS % 2 % (0-3); HEMATOCRIT 37.2 % (36.0-47.0); HEMOGLOBIN 12.1 g/dL (12.0-15.5); LYMPH # 0.9 x10^3/uL (1.0-4.8); LYMPH % 18 % (24-48); MEAN CORPUSCULAR HEMOGLOBIN 31 pg (25-35); MEAN CORPUSCULAR HGB CONC 33 g/dL (31-37); MEAN CORPUSCULAR VOLUME 94 fL (79-100); MONO # 0.6 x10^3/uL (0.0-1.1); MONO % 13 % (0-9); NEUT # 3.3 x10^3/uL (1.8-7.7); NEUT % 66 % (31-73); PLATELET COUNT 364 x10^3/uL (140-400); RED BLOOD COUNT 3.95 x10^6/uL (3.50-5.40); RED CELL DISTRIBUTION WIDTH 13.8 % (11.5-14.5); WHITE BLOOD COUNT 4.9 x10^3/uL (4.0-11.0)
[2021-12-20 11:56] LABS: ALBUMIN 3.7 g/dL (3.4-5.0); ALBUMIN/GLOBULIN RATIO 0.6 (1.0-1.7); TOTAL BILIRUBIN 0.4 mg/dL (0.2-1.0)
[2021-12-21 18:09] LABS: KAPPA LAMBDA RATIO 14.83 (0.26-1.65); LAMBDA FREE 11.6 mg/L (5.7-26.3)
[2021-12-23 15:13] LABS: COMMENT IMMUNOFIX SERUM Note: (.); IMMUNOGLOBULIN A 138 mg/dL (64-422); IMMUNOGLOBULIN G 4064 mg/dL (586-1602); IMMUNOGLOBULIN M 180 mg/dL (26-217)
[2021-12-23 16:11] LABS: ALBUM 3.9 g/dL (2.9-4.4); ALPHA 1 0.3 g/dL (0.0-0.4); ALPHA 2 0.9 g/dL (0.4-1.0); GAMMA 3.1 g/dL (0.4-1.8); PROTEIN TOTAL 9.2 g/dL (6.0-8.5); SPEP AG RATIO 0.7 (0.7-1.7)
== END ==
LOC: ONCLAB 10:01
PROVIDERS: ATTEND Internal Medicine Hematology & Oncology
DX: C34.11 Malignant neoplasm of upper lobe, right bronchus or lung (principal); D47.2 Monoclonal gammopathy
CPT/HCPCS: 36415; 80053; 82728; 82784; 83520; 83540; 83550; 84165; 85025; 86334